=== PATIENT | female | born 1990 | race Caucasian/White ===

== ENCOUNTER 2020-07-28 04:46 | Emergency (ER) | payer BC ==
[~2020-07-28] VITALS: Ht 172.7 cm; Wt 70.3 kg
[2020-07-28] MEDS ORDERED: IBUP-1955 PO (06:30)
[2020-07-28 06:36] VITALS: BP 118/80
--- NOTE | 2020-07-28 06:36 | NUR ---
Patient discharged to home in stable condition. Written and verbal after care instructions given. Patient verbalizes understanding of instructions. Stressed follow up or return to ER for worsening s/s. Patient ambulates with steady gait, left with all personal belongings, V/S stable.
== END 2020-07-28 06:36 | disposition home or self-care (01) ==
LOC: ER 04:58
DX: S66.104A Unspecified injury of flexor muscle, fascia and tendon of right ring finger at wrist and hand level, initial encounter (principal); S62.664A Nondisplaced fracture of distal phalanx of right ring finger, initial encounter for closed fracture; W51.XXXA Accidental striking against or bumped into by another person, initial encounter; Y92.89 Other specified places as the place of occurrence of the external cause; Z88.1 Allergy status to other antibiotic agents
CPT/HCPCS: 73140; A4663